=== PATIENT | male | born 1970 | race Caucasian/White ===

== ENCOUNTER 2017-05-06 09:09 | Inpatient (IN) | payer OTHER ==
[~2017-05-06] VITALS: Ht 172.7 cm; Wt 87.5 kg
[2017-05-06] MEDS ORDERED: BENICAR20 MG PO (13:16)
[2017-05-06] MEDS ORDERED: SYNTHROID125 MCG PO (13:17)
[2017-05-06] MEDS ORDERED: METFORMIN HCL500 MG PO (13:17)
[2017-05-06] MEDS ORDERED: TOPROL XL25 M1 PO (13:18)
[2017-05-13] MEDS ORDERED: PERCOCET 5-3251 EACH PO (16:04)
[2017-05-13] MEDS ORDERED: PROBIOTIC & AC1 EACH PO (16:04)
== END 2017-05-13 17:44 | disposition home or self-care (01) | DRG 331 ==
LOC: SURH 05-11 06:44 → O/R 05-11 06:44 → SURH 05-11 07:00
PROVIDERS: Surgery
PROC: 0DJD8ZZ Inspection of Lower Intestinal Tract, Via Natural or Artificial Opening Endoscopic (ICD-10-PCS; 2017-05-11)
PROC: 0DTN4ZZ Resection of Sigmoid Colon, Percutaneous Endoscopic Approach (ICD-10-PCS; principal; 2017-05-11 07:00)
DX: K57.32 Diverticulitis of large intestine without perforation or abscess without bleeding (principal)

== ENCOUNTER 2018-06-06 06:30 | Day surgery (SDC) | payer OTHER ==
[~2018-06-06 06:30] MED LIST: BENICAR20 MG PO; METFORMIN HCL500 MG PO; PERCOCET 5-3251 EACH PO; PROBIOTIC & AC1 EACH PO; SYNTHROID125 MCG PO; TOPROL XL25 M1 PO
== END 2018-06-06 12:40 | disposition home or self-care (01) ==
LOC: AMB-ENDOS 06:30
DX: K57.32 Diverticulitis of large intestine without perforation or abscess without bleeding (principal)